=== PATIENT | male | born 1975 | race African-American/Black ===

== ENCOUNTER 2017-12-26 08:52 | Inpatient (IN) | payer OTHER ==
[~2017-12-26] VITALS: Ht 180.3 cm; Wt 137.4 kg
[2017-12-26] VITALS (12 sets, daily range): BP systolic 130–171; BP diastolic 59–97
[~2017-12-26 08:52] MED LIST: ceFAZolin sod 2 GM in D5W 110 ML IVPB SCH
[2017-12-26] MEDS ORDERED: Bacitracin 50000 Units Vial ONE (09:52)
[2017-12-26] MEDS ORDERED: Vancomycin 1gm inj IVPB ONE (09:52)
[2017-12-26] MEDS ORDERED: HUMALOG100 UNIT/1 SUBQ (09:53)
[2017-12-26] MEDS ORDERED: LANTUS SOL100 UNIT/1 SUBQ (09:53)
[2017-12-26] MEDS ORDERED: Thrombin 5000 units TOPIC ONE (09:57)
[2017-12-26] MEDS ORDERED: Labetalol 5mg/ml 20ml vial IV ONE (11:30)
[2017-12-26] MEDS ORDERED: LR 1000ml ONE (11:30)
[2017-12-26] MEDS ORDERED: Zemuron 50mg/5ml Inj IV ONE ×2 (11:30→11:45)
[2017-12-26] MEDS ORDERED: NS Irrig 1000ml ONE (11:30)
[2017-12-26] MEDS ORDERED: Propofol 1,000mg/ 100ml btl IV ONE (11:30)
[2017-12-26] MEDS ORDERED: Sterile Water Irrig 1000ml IRRIG ONE (11:30)
[2017-12-26] MEDS ORDERED: Lidocaine 1% MPF 10mg/ml 5ml ONE (11:32)
[2017-12-26] MEDS ORDERED: Propofol 200mg/20ml IV ONE (11:32)
[2017-12-26] MEDS ORDERED: Ketamine 500mg Inj ONE (11:33)
[2017-12-26] MEDS ORDERED: fentaNYL 100 mcg/2 mL IV ONE ×3 (11:33→14:11)
[2017-12-26] MEDS ORDERED: Succinylcholine 20mg/ml 10ml vial ONE (11:45)
--- NOTE | 2017-12-26 11:45 | Pre-Procedure Note/Attestation ---
Pre-Procedure Note/Attestation Complete Prior to Procedure Planned Procedure: not applicable Procedure Narrative: Anterior cervical discectomy and fusion of C34 and artificial disc replacement of C45 Indications for Procedure Pre-Operative Diagnosis: herniation at C34,45 Attestation I attest that I discussed the nature of the procedure; its benefits; risks and complications; and alternatives (and the risks and benefits of such alternatives ), prior to the procedure, with the patient (or the patient's legal uniforms sales representative). I attest that, if there was a reasonable possibility of needing a blood transfusion, the patient (or the patient's legal uniforms sales representative) was given the [facility] standardized written summary, pursuant to the [place] Blood Safety Act ([place] Health and Safety Code # 1645, as amended). I attest that I re-evaluated the patient just prior to the surgery and that there has been no change in the patient's H&P, except as documented below: Michael Allen MD Dec 26, 2017 11:45
--- NOTE | 2017-12-26 11:46 | Brief Operative Note ---
Immediate Post Operative Note Operative Note Chief Complaint: neck pain and radiculopathy Pre-op Diagnosis: herniation at C34,45 Procedure: Anterior cervical discectomy and fusion of C34 and artificial disc replacement of C45 Post-op Diagnosis: same as pre-op Findings: consistent w/pre-op dx studies Surgeon: Alejandro Plasterer Stucco: Win Anesthesia: general Specimen: none Complications: none Condition: stable Estimated Blood Loss: minimal Drains: none - nuvasive interlock C sz 6, prodisc sz 5 Implant(s) used?: Yes Michael Allen MD Dec 26, 2017 11:46
[2017-12-26] MEDS ORDERED: HYDROcodone/Acetamin 7.5/325 tab ORAL PRN ×2 (12:00)
[2017-12-26] MEDS: Dexamethasone 4mg/ml vial IVP SCH ×3 (12:00→23:24)
[2017-12-26] MEDS ORDERED: Naloxone 0.4mg/ml Inj IVP PRN (12:00)
[2017-12-26] MEDS ORDERED: Metoclopramide 10mg/2ml Inj IVP PRN ×2 (12:00→17:00)
[2017-12-26] MEDS ORDERED: Chloraseptic Spray 20mL Bottle ORAL PRN (12:00)
[2017-12-26] MEDS ORDERED: Milk of Magnesia 30ml Ud ORAL PRN (12:00)
[2017-12-26] MEDS ORDERED: Norco 5mg/325mg tab ORAL PRN (12:00)
[2017-12-26] MEDS ORDERED: ePHEDrine 50mg/ml Inj ONE (13:56)
[2017-12-26] MEDS ORDERED: Sugammadex Sodium 200mg/2ml vial IV ONE (14:45)
[2017-12-26] MEDS ORDERED: LR 1000ml 1,000 ML IVLG SCH (14:53)
--- NOTE | 2017-12-26 14:53 | Anethesia Preoperative Eval ---
Anesthesia Pre-op PMH/ROS General Date of Evaluation: Dec 26, 2017 Time of Evaluation: 11:00 Anesthesiologist: ASA Score: ASA 3 Mallampati Score Class I : Soft palate, uvula, fauces, pillars visible Class II: Soft palate, uvula, fauces visible Class III: Soft palate, base of uvula visible Class IV: Only hard plate visible Mallampati Classification: Class III Surgeon: yuriy Diagnosis: neck pain Surgical Procedure: ACDF C3-4,4-5 Anesthesia History: none Family History: no anesthesia problems Allergies: Coded Allergies: No Known Allergies (Unverified , 12/26/17) Medications: see eMAR Past Medical History Cardiovascular: Denies: HTN, CAD, CT, valve dz, arrhythmia, other Pulmonary: Denies: asthma, COPD, ABELARDO, other Gastrointestinal/Genitourinary: Denies: GERD, CRI, ESRD, other Neurologic/Psychiatric: Denies: dementia, CVA, depression/anxiety, TIA, other Endocrine: Reports: DM HEENT: Denies: cataract (L), cataract (R), glaucoma, [place] (L), [place] (R), other Hematology/Immune: Denies: anemia, DVT, bleeding disorder, other Musculoskeletal/Integumentary: Reports: other - neck pain Other: obesity PMH Narrative: iddm, obesity PSxH Narrative: sursery for weight reduction Anesthesia Pre-op Phys. Exam Physician Exam Last Vital Signs Date Time Temp Pulse Resp B/P (MAP) Pulse Ox O2 Delivery O2 Flow Rate FiO2 12/26/17 09:56 97.4 96 18 130/59 97 Room Air 97.4 Constitutional: NAD Cardiovascular: RRR Respiratory: CTA Gastrointestinal: S/NT/ND Airway Exam Mallampati Score: Class III MO: full ROM: limited Teeth: intact Anesthesia Pre-op A/P Risk Assessment & Plan Assessment: asa 3 Plan: ETGA Status Change Before Surgery: No Pre-Antibiotics Drug: ancef 2 grams Given Within 1 Hr of Incision: Yes Time Given: 12:10 Sherri Wynn M.D. Dec 26, 2017 14:53
[2017-12-26] MEDS ORDERED: Labetalol 5mg/ml 20ml vial IV PRN (15:00)
[2017-12-26] MEDS ORDERED: fentaNYL 100 mcg/2 mL IV PRN (15:00)
[2017-12-26] MEDS ORDERED: Hydromorphone 0.5mg/0.5ml inj IVP PRN (15:00)
[2017-12-26] MEDS ORDERED: Midazolam 2mg/2ml Inj IVP PRN (15:00)
[2017-12-26] MEDS ORDERED: DiphenhydrAMINE 50mg/ml Inj IVP PRN (15:00)
--- NOTE | 2017-12-26 15:17 | Diagnostic Imaging Report ---
Indication: Neck Pain Findings: 7 fluoroscopic views of the cervical spine were obtained. Fluoroscopic imaging showing anterior instrumented fusion at C3-4, disc replacement at C4-5. IMPRESSION: Intraoperative imaging
--- NOTE | 2017-12-26 16:10 | Immediate Post-Op Evaluation ---
Immediate Post-Op Evalulation Immediate Post-Op Evalulation Procedure: acdf 3-4, 4-5 Date of Evaluation: Dec 26, 2017 Time of Evaluation: 15:47 IV Fluids: 1000ml Blood Products: 0 Estimated Blood Loss: 50ml Urinary Output: 300ml Blood Pressure Systolic: 153 Blood Pressure Diastolic: 97 Pulse Rate: 91 Respiratory Rate: 17 O2 Sat by Pulse Oximetry: 100 Temperature (Fahrenheit): 97 Pain Score (1-10): 0 Nausea: No Vomiting: No Complications none Patient Status: awake, patent, none Hydration Status: adequate Drug: ancef 2 grams Given Within 1 Hr of Incision: No Time Given: 12:10 Sherri Wynn M.D. Dec 26, 2017 16:10
--- NOTE | 2017-12-26 16:22 | 48 Hour Post Anesthesia Eval ---
Post Anesthesia Evaluation Procedure: acdf 3-4, 4-5 Date of Evaluation: Dec 26, 2017 Time of Evaluation: 18:23 Blood Pressure Systolic: 159 0: 77 Pulse Rate: 87 Respiratory Rate: 18 Temperature (Fahrenheit): 98.2 Airway: patent Nausea: No Vomiting: No Pain Intensity: 3 Hydration Status: adequate Cardiopulmonary Status: Stable Mental Status/LOC: patient returned to baseline Follow-up Care/Observations: 0 Post-Anesthesia Complications: 0 Follow-up care needed: N/A Raheel Martin MD Dec 26, 2017 16:22
[2017-12-26] MEDS: fentaNYL 100 mcg/2 mL IV PRN ×4 (16:38→17:21)
[2017-12-26] MEDS: Docusate 100mg cap ORAL SCH (17:51)
[2017-12-26] MEDS: Morphine Sulfate 4mg/ml Inj SUBQ PRN ×2 (17:52→21:23)
[2017-12-26] MEDS: NS w/KCl 20mEq 1,000 ML IV SCH ×2 (18:59→21:46)
--- NOTE | 2017-12-26 19:09 | 48 Hour Post Anesthesia Eval ---
Post Anesthesia Evaluation Procedure: acdf 3-4, 4-5 Date of Evaluation: Dec 26, 2017 Time of Evaluation: 17:25 Blood Pressure Systolic: 160 0: 95 Pulse Rate: 97 Respiratory Rate: 18 Temperature (Fahrenheit): 98 O2 Sat by Pulse Oximetry: 100 Airway: other Nausea: No Vomiting: No Pain Intensity: 0 Hydration Status: adequate Mental Status/LOC: patient returned to baseline Post-Anesthesia Complications: none Follow-up care needed: N/A Sherri Wynn M.D. Dec 26, 2017 19:09
[2017-12-26] MEDS ORDERED: TransDerm Scop 1mg/72HR Patch TDERMAL SCH (20:00)
[2017-12-26] MEDS: ceFAZolin sod 1 GM in D5W 110 ML IV SCH (20:03)
[2017-12-26] MEDS: NovoLOG Insulin Flexpen SUBQ SCH (20:22)
[2017-12-27] VITALS: BP 150/93
[2017-12-27] MEDS: Morphine Sulfate 4mg/ml Inj SUBQ PRN ×5 (00:34→20:46)
[2017-12-27 04:00] VITALS: BP 147/84
[2017-12-27] MEDS: ceFAZolin sod 1 GM in D5W 110 ML IV SCH ×2 (04:23→13:40)
[2017-12-27] MEDS: Dexamethasone 4mg/ml vial IVP SCH (05:39)
[2017-12-27] MEDS: NS w/KCl 20mEq 1,000 ML IV SCH (05:39)
[2017-12-27] MEDS: NovoLOG Insulin Flexpen SUBQ SCH ×4 (05:55→20:55)
[2017-12-27 08:03] VITALS: BP 122/68
[2017-12-27] MEDS: Docusate 100mg cap ORAL SCH ×2 (08:21→17:56)
[2017-12-27 12:00] VITALS: BP 145/80
[2017-12-27 16:00] VITALS: BP 155/84
--- NOTE | 2017-12-27 16:15 | Discharge Summary ---
DATE OF ADMISSION: 12/26/2017 DATE OF DISCHARGE: 12/27/2017 PROCEDURE PERFORMED DURING ADMISSION: Cervical C3-C4 fusion and C4-C5 artificial disk replacement. REASON FOR ADMISSION: Herniation, C3-C4 and C4-C5. DISCHARGE PHYSICAL EXAM: 1. Patient was ambulating with and without the assistance of physical therapy. 2. Prior to discharge home incision was clean and dry with minimal swelling. 3. Follows commands. 4. Alert and oriented. 5. Martinez discontinued, voiding. 6. Incentive spirometer at bedside. 7. IVF hep locked. MOTOR: Demonstrates expected postoperative bulk and tone. Moves biceps, triceps, and deltoid musculature on command. Moves hip flexors, quadriceps, tibialis anterior, EHL, gastrocsoleus musculature on command as well. TREATMENT RENDERED: 1. Daily nursing care. 2. Physical Therapy. 3. Occupational Therapy. 4. Intravenous medications. 5. Oral medications. 6. Daily postoperative examinations by Spine surgery team. CONDITION OF PATIENT ON DISCHARGE: The condition on discharge is stable for discharge to home. DISCHARGE INSTRUCTIONS: Our specific instructions relating to physical activity, medications, diet, and follow-up care are detailed in our standard operative folder and were given to this patient prior to surgery. We will however summarize these briefly as stated below. Regarding physical activity, we would like the patient to limit their flexion, extension and rotation. We also require a limitation on their bending, lifting and twisting. All medication has been called in prior to surgery to their pharmacy of choice. They can resume their regular diet once tolerated. We would like them to shower and limit soaking the wound in a tub/Jacuzzi/the ocean for a period of one month or until the incision is completely healed. We will have them follow up in our office in three weeks' time for their regularly scheduled appointment. They understand to call our office tomorrow to schedule the time for their three week followup appointment. The patient will notify us should they experience any increase in the severity of pain, redness/swelling/ or drainage from their incision. Linden Souza JOB#: [id number] CC:
--- NOTE | 2017-12-27 16:30 | Operative Note - Dictated ---
DATE OF OPERATION: 12/25/2017 SURGEON: Michael Allen M.D., orthopedic spine surgeon. MANAGER AEROSPACE: Manuel Walden M.D. PREOPERATIVE DIAGNOSES: 1. Intractable neck pain. 2. Radiculopathy. 3. Herniation, C3-C4. 4. Neural foraminal stenosis, C3-C4. 5. Stenosis. POSTOPERATIVE DIAGNOSES: 1. Intractable neck pain. 2. Radiculopathy. 3. Herniation, C3-C4. 4. Neural foraminal stenosis, C3-C4. 5. Stenosis. PROCEDURE PERFORMED: 1. Anterior cervical discectomy and fusion of C3-C4 using NuVasive Interlock Cage, size 5, a total of six 14 mm screws, with the insertion of allograft Osteocel bone. 2. Use of intraoperative microscope. 3. Motor evoked potential monitoring. 4. Somatosensory evoked potential monitoring. 5. Supervision and interpretation of fluoroscopy. COMPLICATIONS: None. ANESTHESIA: General. ESTIMATED BLOOD LOSS: Less than 100 mL. INDICATIONS FOR SURGERY: This patient is a 42-year-old male who has history of intractable neck pain, radiculopathy, herniation of C3-C4, neural foraminal stenosis of C3-C4, and stenosis. We tried a course of conservative management but despite this course, there was still a significant component of persistent, recalcitrant neck pain and arm pain. The MRI demonstrated significant neural foraminal compromise secondary to disc herniations at C3-C4. We had a long discussion with Kian regarding the risks and benefits of surgery. Our discussion included but was not limited to nonoperative management, chiropractic management, another epidural steroid injection as well as definitive management in the form of surgery. We recommended an anterior cervical discectomy and fusion of C3-C4 as final definitive management. We reviewed the risks and benefits of surgery with the patient. Our discussion included a comprehensive review of the clinical issues and the nature of the clinical decision. We reviewed the alternatives, including doing nothing. The patient elected to proceed accordingly with anterior cervical discectomy and fusion of C3-C4. We had a long discussion regarding the risks, alternatives, and benefits of surgery. Our description of the risks included a discussion in person as well as a signed consent which detailed all pertinent risks from the procedure itself. Briefly, our discussion included but was not limited to infection, bleeding, pseudarthrosis, spinal cord injury, neurovascular injury, dural tear, CSF leak, neuropathy, paralysis, permanent weakness/drop foot/drop arm, paresthesias, blindness, palsy and weakness. The patient understood there may be a need for a revision surgery or additional procedures. Approach-related complications including dysphonia, dysphagia, blindness, permanent vocal cord and neural injury, hematoma, swallowing and breathing difficulty. Medical complications were reviewed including liver, kidney, shock, cardiopulmonary failure, anesthesia complications including , swelling, damage to the musculature, larynx/voice injury or loss, esophagus/throat, trachea, blood vessels and muscles/muscular sprain and lungs/pneumothorax during this surgical procedure; injury to deeper structures may be temporary or permanent. After this review of risks, the patient understood these and elected to proceed. A written and verbal consent was given. We discussed the pros and cons of all the alternatives. We discussed the uncertainties associated with the decision. Afterwards I assessed the patient's understanding and explored their preferences. All questions were answered and no guarantees were given. Medical clearance was obtained prior to surgery. INTRAOPERATIVE FINDINGS: A broad-based disc herniation which was found posterior to a tear/rent in the posterior longitudinal ligament causing a considerable amount of neural foraminal stenosis with significant encroachment on the neural foramina and spinal cord. DESCRIPTION OF PROCEDURE: Under the benefit of general endotracheal anesthesia and with the assistance of the entire operative team, the patient was moved from the [place] onto the operative table in the supine position. The head was secured and carefully positioned appropriately. Bilateral arms were secured with GelPads and foam and all bony prominences were padded. For the bilateral lower extremities, SCD and BRITTNEE hose were placed for DVT prophylaxis. A surgical timeout was called which corroborated our planned procedure of anterior cervical discectomy and fusion of C3-C4. Preoperative antibiotics were administered within 30 minutes of the incision for antibiotic prophylaxis. Using lateral fluoroscopic radiography, the operative levels were delineated. Next the wound was prepped and draped with chlorhexidine and sterile drapes. An incision was based on lateral fluoroscopy and we centered our incision at the C3-C4 interspace and next using a standard Griffith-Curtis anterior-based approach, the incision was taken down through the skin and subcutaneous tissues until the vertebral bodies and their corresponding disc spaces were visualized. A needle was placed into the interspace to confirm placement of the operative interspace and we performed the remainder of procedure under microscopic visualization. Next, using a bipolar and Bovie cautery to ensure meticulous hemostasis, the longus colli was mobilized bilaterally and retractors were placed deep to the longus colli bilaterally to address retraction. Next we turned our attention to the radical anterior discectomy. This was initially performed at C3-C4 first by using a #15 blade scalpel followed by narrow pituitaries and a Microsect 5-B curette was used to denude the endplate of all cartilaginous tissue. Next using a [employer] AM8 drill bit, the partial vertebrectomy was performed in a oqgq-dz-hggn and [id number]-lc-oydcj fashion, and ultimately the posterior uncinate joints bilaterally and posterior osteophytic lips and margins causing central and lateral impingement were carefully denuded until visualization of the posterior longitudinal ligament was possible. An endplate preparation was performed in the exact same fashion using an intervertebral vehicle glass technician, sequential distraction was obtained throughout the disc space. We saw a tear/rent in the PLL and this was carefully mobilized and dissected using a Microsect 1-B curette until we visualized a broad-based disc herniation with compression of the spinal cord as well as neural foramina which was right more than left sided. This neural foraminal compression was carefully resected using a Kerrison-1 and Kerrison-2 rongeurs until complete decompression of the spinal cord was visualized and complete decompression of the neural foramina and nerve root therein as well as the axilla and lateral margin of the nerve root was visualized and subsequently completely decompressed. The family was notified at one-hour intervals throughout the procedure to provide for consistent updates. We next turned our attention towards trialing our implant within the disc space. We initially tried size 5 and afterwards size 6 trial from the [employer] system at this level, size 5 appeared to be appropriate under AP and lateral fluoroscopy as well as in terms of its height, depth, width, and lack of toggle. The PEEK (polyetheretherketone) interbody cages were then both packed with allograft bone from Osteocel and local autograft bone matrix. Next these were then carefully advanced and secured into their intervertebral spaces under direct visualization and with supervision of AP and lateral fluoroscopic views. We next turned our attention towards plating. Plating was performed with Ogin interlock-C plating system. A total of screws, size 14 mm in length were inserted and confirmed under AP and lateral fluoroscopy and confirmed to be in excellent position. SECOND LEVEL: DATE OF OPERATION: 12/25/2017 SURGEON: Michael Allen M.D., orthopedic spine surgeon. MANAGER AEROSPACE: Manuel Walden M.D. PREOPERATIVE DIAGNOSES: 1. Intractable neck pain. 2. Radiculopathy. 3. Herniation, C4-C5. 4. Neural foraminal stenosis, C4-C5. 5. Stenosis. POSTOPERATIVE DIAGNOSES: 1. Intractable neck pain. 2. Radiculopathy. 3. Herniation, C4-C5. 4. Neural foraminal stenosis, C4-C5. 5. Stenosis. PROCEDURE PERFORMED: 1. Anterior cervical discectomy and artificial disc replacement of C4-C5 using a Synthes ProDisc-C 5 height. 2. Use of intraoperative microscope. 3. Motor-evoked potential monitoring. 4. Somatosensory-evoked potential monitoring. 5. Supervision and interpretation of fluoroscopy. COMPLICATIONS: None. ANESTHESIA: General. ESTIMATED BLOOD LOSS: Less than 100 mL. INDICATIONS FOR SURGERY: This patient is a 42-year-old male who has history of diagnoses as listed above. As of result of this, the patient sustained intractable neck pain, radiculopathy, herniation of C4-C5, neural foraminal stenosis of C4-C5, an stenosis. We tried a course of conservative management, but despite this course, there was still a significant component of persistent, recalcitrant neck pain and arm pain. The MRI demonstrated significant neural foraminal compromise secondary to disc herniations at C4-C5. We had a long discussion with Kian regarding the risks and benefits of surgery. Our discussion included but was not limited to nonoperative management, chiropractic management, another epidural steroid injection as well definitive management in the form of surgery. We recommended a ?? (C) as final definitive management. We reviewed the risks and benefits of surgery with the patient. Our discussion included a comprehensive review of the clinical issues and the nature of the clinical decision. We reviewed the alternatives, including doing nothing. The patient elected to proceed accordingly with anterior cervical discectomy and artificial disc replacement of C4-C5. We had a long discussion regarding the risks, alternatives, and benefits of surgery. Our description of the risks included a discussion in person as well as a signed consent which detailed all pertinent risks from the procedure itself. Briefly, our discussion included but was not limited to infection, bleeding, pseudarthrosis, spinal cord injury, neurovascular injury, dural tear, CSF leak, neuropathy, paralysis, permanent weakness/drop foot/drop arm, paresthesias, blindness, palsy and weakness. The patient understood there may be a need for a revision surgery or additional procedures. Approach-related complications including dysphonia, dysphagia, blindness, permanent vocal cord and neural injury, hematoma, swallowing and breathing difficulty. Medical complications were reviewed including liver, kidney, shock, cardiopulmonary failure, anesthesia complications including , swelling, damage to the musculature, larynx/voice injury or loss, esophagus/throat, trachea, blood vessels and muscles/muscular sprain and lungs/pneumothorax during this surgical procedure; injury to deeper structures may be temporary or permanent. After this review of risks, the patient understood these and elected to proceed. A written and verbal consent was given. We discussed the pros and cons of all the alternatives. We discussed the uncertainties associated with the decision. Afterwards I assessed the patient's understanding and explored their preferences. All questions were answered and no guarantees were given. Medical clearance was obtained prior to surgery. INTRAOPERATIVE FINDINGS: A broad-based disc herniation which was found posterior to a tear/rent in the posterior longitudinal ligament at C4-C5 causing a considerable amount of neural foraminal stenosis with significant encroachment on the neural foramina and spinal cord. DESCRIPTION OF PROCEDURE: A surgical timeout was called which corroborated our planned procedure of anterior cervical discectomy and artificial disc replacement of C4-C5. Preoperative antibiotics were administered within 30 minutes of the incision for antibiotic prophylaxis. Using lateral fluoroscopic radiography, the operative levels were delineated. Next the wound was prepped and draped with chlorhexidine and sterile drapes. An incision was based on lateral fluoroscopy and we centered our incision at the C4-C5 interspace and next using a standard Griffith-Curtis anterior based approach the incision was taken down through the skin and subcutaneous tissues until the vertebral bodies and their corresponding disc spaces were visualized. A needle was placed into the interspace to confirm placement of the operative interspace and we performed the remainder of procedure under microscopic visualization. Next, using a bipolar and Bovie cautery to ensure meticulous hemostasis, the longus colli was mobilized bilaterally and retractors were placed deep to the longus colli bilaterally to address retraction. Next we turned our attention to the radical anterior discectomy. This was initially performed at C4-C5 first by using a #15 blade scalpel followed by narrow pituitaries and a Microsect 5-B curette was used to denude the endplate of all cartilaginous tissue. Next using a [employer] AM8 drill bit, the vertebral endplates were denuded in a [id number]-ri-flia and hzijf-[id number] fashion, and ultimately the posterior uncinate joints bilaterally and posterior osteophytic lips and margins causing central and lateral impingement were carefully denuded until visualization of the posterior longitudinal ligament was possible. An endplate preparation was performed in the exact same fashion using an intervertebral vehicle glass technician, sequential distraction was obtained throughout the disc space. We saw a tear/rent in the PLL and this was carefully mobilized and dissected using a Microsect 1-B curet until we visualized a broad-based disc herniation with compression of the spinal cord as well as neural foramina which was right more than left sided. This neural foraminal compression was carefully resected using a Kerrison-1 and Kerrison-2 rongeurs until complete decompression of the spinal cord was visualized and complete decompression of the neural foramina and nerve root therein as well as the axilla and lateral margin of the nerve root was visualized and subsequently completely decompressed. We next turned our attention towards trialing our implant within the disc space. We initially tried size 5 and the ProDisc Cervical spacer fit well in regard to depth and width. This implant was opened and prepared. Next under direct visualization, I confirmed excellent fit in respect to the anterior and posterior vertebral bodies, the uncinate joints, and in regard to toggle. Once satisfied with this placement on serial AP and lateral fluoroscopy, I turned my attention towards cutting our kami. These were cut in the bones using a reciprocating drill and afterwards all free fragments of bone were irrigated. Next FloSeal was placed into the interspace and the implant was inserted using fluoroscopic guidance. Next the Synthes ProDisc C size 5 ADR was then carefully advanced and secured into the intervertebral space under direct visualization and with supervision of AP and lateral fluoroscopic views. After a finger sweep, we confirmed removal of all sponges. The retractor was removed and we next turned our attention to meticulous hemostasis with FloSeal and bipolar cautery. After the sponge and needle count was again found to be correct with our second count, we next turned our attention to closure. The wound was again copiously irrigated with antibiotic-impregnated saline. Closure consisted of 4-0 clear nylon for the platysma, and 6-0 clear nylon for the superficial skin. Final skin closure and dressings consisted of Dermabond. Prior to final closure, a final radiograph was obtained which demonstrated the hardware is intact with excellent position throughout. The patient tolerated the procedure well. The patient was carefully extubated after the conclusion of surgery. We discussed the findings of the surgery with the family upon completion of the case. At this point, the patient was transferred to the spine floor for further observation. Michael Allen M.D. DR: Jalil JOB#: [id number] CC:
[2017-12-27 20:00] VITALS: BP 158/87
[2017-12-28] VITALS: BP 118/73
[2017-12-28 04:00] VITALS: BP 156/97
== END 2017-12-28 04:25 | disposition home or self-care (01) | DRG 472 ==
LOC: SDSOVERFLO 08:52 → 3E 11:46
PROC: 0RG10A0 Fusion of Cervical Vertebral Joint with Interbody Fusion Device, Anterior Approach, Anterior Column, Open Approach (ICD-10-PCS; principal; 2017-12-26 10:30)
PROC: 0RB30ZZ Excision of Cervical Vertebral Disc, Open Approach (ICD-10-PCS; principal; 2017-12-26 10:30)
DX: M50.11 Cervical disc disorder with radiculopathy, high cervical region (principal); Z68.41 Body mass index [BMI] 40.0-44.9, adult; E11.9 Type 2 diabetes mellitus without complications; Z79.4 Long term (current) use of insulin; M48.02 Spinal stenosis, cervical region; E66.9 Obesity, unspecified
CPT/HCPCS: 36415; 72040; 76001; 82962; 86850; 86900; 86901; 87081; J1815; J2405